=== PATIENT | female | born 1940 | race Caucasian/White ===

== ENCOUNTER 2017-04-15 09:00 | Emergency (ER) | payer OTHER ==
[2017-04-15 09:12] VITALS: BP 162/103; PULSE 75; RESP 18; TEMP 98.4; O2SAT 96
--- NOTE | 2017-04-15 09:53 | EDPHY ---
H & P Stated Complaint: Red swollen area to back of L knee getting worse Time Seen by Provider: 04/15/17 09:42 HPI/ROS: CHIEF COMPLAINT: Erythema back of left knee HISTORY OF PRESENT ILLNESS: The patient is a 76 y/o female arriving with her complaining of progressively increasing redness on the back of her left knee over the last week. She initially noticed a small non-pruritic red area that she thought may be a tick bite after returning from [place]. The area of redness has increased in size over the last week. She states it is generally not painful and does not cause any difficulty walking. No fever, vomiting, malaise, or other symptoms. She denies pertinent medical history. Her tetanus is up-to-date. - Personal History Current Tetanus/Diphtheria Vaccine: Yes Current Tetanus Diphtheria and Acellular Pertussis (TDAP): Yes - Medical/Surgical History PMH: Denies Hx Asthma: No Hx Chronic Respiratory Disease: No Hx Diabetes: No Hx Cardiac Disease: No Hx Renal Disease: No Hx Cirrhosis: No Hx Alcoholism: No Hx HIV/AIDS: No Hx Splenectomy or Spleen Trauma: No Other PMH: glaucoma - Social History Smoking Status: Never smoked Additional Social History: at bedside. Recently returned from [place]. - Physical Exam Exam: General Appearance: Alert, pleasant Neurological: A&O, nonfocal, normal gait Skin: 7cm area of erythema on posterior left knee without tenderness, warmth, or fluctuance. Extremities: normal ROM of left knee without pain, no joint effusion. Psychiatric: Mood and affect normal Constitutional: Initial Vital Signs Temperature (C) 36.9 C 04/15/17 09:10 Heart Rate 75 04/15/17 09:10 Respiratory Rate 18 04/15/17 09:10 Blood Pressure 162/103 H 04/15/17 09:10 O2 Sat (%) 96 04/15/17 09:10 O2 Delivery Mode Room Air Allergies/Adverse Reactions: Penicillins Allergy (Verified 04/15/17 09:10) Sulfa (Sulfonamide Antibiotics) Allergy (Verified 04/15/17 09:10) Home Medications: Medication Instructions Recorded Doxycycline Hyclate 100 mg PO BID #20 tablet 04/15/17 Timolol 04/15/17 Medical Decision Making ED Course/Re-evaluation: 76-year-old female with progressively increasing area of erythema on her posterior left knee. Minimal associated pain without tenderness on exam. No evidence of abscess or joint effusion. h/o anaphylaxis to PCN. Plan to treat as cellulitis with doxycycline. Standard cellulitis instructions and return precautions given. She is comfortable with this plan. Departure - Departure Disposition: Home, Routine, Self-Care Clinical Impression: Cellulitis Qualifiers: Site of cellulitis: extremity Site of cellulitis of extremity: lower extremity Laterality: left Qualified Code(s): L03.116 - Cellulitis of left lower limb Condition: Good Instructions: Cellulitis (ED) Additional Instructions: 1. Take Doxycycline as prescribed. Be sure to complete the entire prescription. 2. If your symptoms fail to improve or continue to worsen over the next few days , please follow up with your primary care provider. 3. Return to the ED for severe leg pain or swelling, shortness of breath, fever , or other worsening of condition. Referrals: Becki Moreno MD [Medical Doctor] - 2-3 days, if not improved Prescriptions: Doxycycline Hyclate 100 mg PO BID #20 tablet Report Scribed for: Liliana Lee Report Scribed by: Kerri Barger Date of Report: 04/15/17 Time of Report: 09:53 Physician Review and Approval Statement: 04/15/17 09:53 Portions of this note were transcribed by a director biomedical engineering. I personally performed a history, physical exam, medical decision making, and confirmed accuracy of information the transcribed note.
== END 2017-04-15 10:08 | disposition home or self-care (01) ==
DX: L03.116 Cellulitis of left lower limb (principal)